=== PATIENT | female | born 1990 | race Caucasian/White ===

== ENCOUNTER 2021-02-12 14:11 | Emergency (ER) | payer OTHER ==
[~2021-02-12] VITALS: Ht 175.3 cm; Wt 104.3 kg
[~2021-02-12 14:11] MED LIST: ALBU90OI INH; AMOX500 PO; Amoxicillin500 MG PO; CIPR500 PO; CITA20 PO; CODGUAEL PO; CRUTCH4 USE; DIPATR PO; FLUO20 PO; FLUT.05NI; HYDACE5 PO; IBUP600 PO; MOMENI; MULVITMINE PO; Macrobid 100 M100 MG PO; NAPR500 PO; Naprosyn500 MG PO; OXYACE5T PO; PROACE100 PO; PROM25 PO; RANI150 PO; RXOXYACE PO; TRAZ50 PO
[2021-02-12] MEDS ORDERED: Cyclobenzaprine10 MG PO (16:20)
== END 2021-02-12 17:07 | disposition home or self-care (01) ==
LOC: ER 14:11
DX: S39.012A Strain of muscle, fascia and tendon of lower back, initial encounter (principal); F17.200 Nicotine dependence, unspecified, uncomplicated; Z79.899 Other long term (current) drug therapy; X50.9XXA Other and unspecified overexertion or strenuous movements or postures, initial encounter; Y92.89 Other specified places as the place of occurrence of the external cause; Y99.0 Civilian activity done for income or pay
CPT/HCPCS: 96372; 99283; A9270; J1885

== ENCOUNTER → 2024-03-03 | Outpatient (CLI) | payer BC ==
[~2024-03-03] MED LIST changes: +Cyclobenzaprine10 MG PO
[2024-03-03 08:31] LABS: BASOPHILS ABSOLUTE AUTO 0.06 K/mm3 (0.00-0.23); BASOPHILS PERCENT AUTO 1 % (0-2); EOSINOPHILS PERCENT AUTO 4 % (0-6); Hematocrit 39.9 % (33.0-51.0); Hemoglobin 13.3 g/dL (11.5-16.0); IMMATURE GRAN ABSOLUTE AUTO 0.02 K/mm3 (0.00-0.10); IMMATURE GRAN PERCENT AUTO 0 % (0-1); LYMPHOCYTES ABSOLUTE AUTO 2.13 K/mm3 (0.84-5.20); LYMPHOCYTES PERCENT AUTO 31 % (21-46); MONOCYTES ABSOLUTE AUTO 0.58 K/mm3 (0.16-1.47); MONOCYTES PERCENT AUTO 8 % (4-13); Mean Corpuscular HGB 29.6 pg (26.0-34.0); Mean Corpuscular HGB Conc 33.3 g/dL (31.5-36.5); Mean Corpuscular Volume 89 fL (80-100); NEUTROPHILS ABSOLUTE AUTO 3.78 K/mm3 (1.96-9.15); NEUTROPHILS PERCENT AUTO 55 % (41-73); Platelet Count 225 K/mm3 (150-400); RDW Coefficient Variation 13.5 % (11.7-14.2); RDW Standard Deviation 44.2 fL (35.1-46.3); White Blood Cell Count 6.87 K/mm3 (4.00-11.30)
[2024-03-03 08:59] LABS: Alanine Aminotransfer (ALT/SGP 18 U/L (12-78); Albumin, Blood 3.6 g/dL (3.4-5.0); Albumin/Globulin Ratio 1.2 (0.8-1.8); Alk Phos 58 U/L (50-136); Anion Gap 9 mmol/L (3-11); Aspartate Aminotrans (AST/SGOT 13 U/L (12-37); Bilirubin, Total 0.4 mg/dL (0.1-1.0); Blood Urea Nitrogen 15 mg/dL (8-24); Bun/Creatinine Ratio 21.9 (12.0-20.0); CHOL/HDL RATIO 3.6; CO2, Blood 23 mmol/L (21-32); Calcium, Blood 8.5 mg/dL (8.5-10.1); Chloride, Blood 111 mmol/L (98-108); Cholesterol 184 mg/dL (50-200); Creatinine, Blood 0.68 mg/dL (0.40-1.00); Globulin, Blood 3.1 g/dL (2.2-4.0); Glomerular Filtration Rate 119 (60-); Glucose, Blood 103 mg/dL (70-99); HDL Cholesterol 51 mg/dL (>39); LDL/HDL RATIO 2.3; Low Density Lipoprotein Chol 120 mg/dL (0-110); Sodium, Blood 139 mmol/L (136-145); Total Protein, Blood 6.7 g/dL (6.4-8.2); Triglycerides 66 mg/dL (30-140); Very Low Density Lipoprot Chol 13 mg/dL (6-28)
== END | disposition home or self-care (01) ==
LOC: LAB SHORT 07:50 → LAB 07:50
PROVIDERS: Nurse Practitioner Family
DX: Z13.220 Encounter for screening for lipoid disorders (principal); Z13.29 Encounter for screening for other suspected endocrine disorder; Z76.89 Persons encountering health services in other specified circumstances
CPT/HCPCS: 80053; 80061; 83036; 84443; 85025

== ENCOUNTER 2024-06-14 09:21 | Emergency (ER) | payer BC ==
[~2024-06-14] VITALS: Ht 175.3 cm; Wt 104.3 kg
[2024-06-14] MEDS ORDERED: Methyl Salicylate/Menth/Camph 57 GM TUBE TOP ONE (09:45)
[2024-06-14] MEDS ORDERED: Ketorolac Tromethamine 30mg Vial IM ONE (09:45)
[2024-06-14] MEDS ORDERED: Gabapentin 300 MG Cap PO ONE (09:45)
[2024-06-14] MEDS ORDERED: Acetaminophen 500 MG Tab PO ONE (09:45)
[2024-06-14] MEDS ORDERED: Cyclobenzaprine HCl 10 MG Tab PO ONE (09:45)
[2024-06-14] MEDS ORDERED: FAMO20 PO (11:52)
[2024-06-14] MEDS ORDERED: CYCL10 PO (11:52)
[2024-06-14] MEDS ORDERED: METPRE4DP PO (11:52)
[2024-06-14] MEDS ORDERED: GABA300 PO (11:52)
[2024-06-14] MEDS ORDERED: OXYC5 PO (12:03)
[2024-06-14 12:47] VITALS: BP 132/80
== END 2024-06-14 12:40 | disposition home or self-care (01) ==
LOC: ER 09:21
DX: M54.41 Lumbago with sciatica, right side (principal); G89.29 Other chronic pain; F17.200 Nicotine dependence, unspecified, uncomplicated
CPT/HCPCS: 51798; 72100; 96372; 99284-25; A9270; J1885